=== PATIENT | female | born 1990 | race Caucasian/White ===

== ENCOUNTER 2017-11-13 10:20 | Emergency (ER) | payer OTHER ==
[2017-11-13 12:33] LABS: ADD MAN DIFF? NO
[2017-11-13 12:37] LABS: BASOPHIL # 0.1 10^3/ul (0.0-0.1); BASOPHILS % 0.5 % (0.0-2.0); EOSINOPHILS # 0.1 10^3/ul (0.0-0.5); EOSINOPHILS % 0.9 % (0.0-7.0); HEMATOCRIT 39.5 % (37.0-47.0); HEMOGLOBIN 13.4 g/dl (12.0-16.0); LYMPHOCYTES # 3.4 10^3/ul (0.8-2.9); LYMPHOCYTES % 23.4 % (15.0-51.0); MEAN CORPUSCULAR HEMOGLOBIN 27.7 pg (29.0-33.0); MEAN CORPUSCULAR HGB CONC 33.9 g/dl (32.0-37.0); MEAN CORPUSCULAR VOLUME 81.6 fl (82.0-101.0); MEAN PLATELET VOLUME 9.2 fl (7.4-10.4); MONOCYTE # 0.8 10^3/ul (0.3-0.9); MONOCYTES % 5.5 % (0.0-11.0); NEUTROPHIL # 10.1 10^3/ul (1.6-7.5); NEUTROPHILS % 69.2 % (39.0-77.0); PLATELET COUNT 314 10^3/UL (140-415); RED BLOOD COUNT 4.84 10^6/ul (4.20-5.40); RED CELL DISTRIBUTION WIDTH 13.7 % (11.5-14.5)
[2017-11-13 12:37] LABS: WHITE BLOOD COUNT 14.6 10^3/ul (4.8-10.8)
[2017-11-13 12:46] LABS: ADD UMIC YES; UR ASCORBIC ACID 40 mg/dL (NEGATIVE); UR BACTERIA FEW /HPF (NONE SEEN); UR BILIRUBIN (Dip) NEGATIVE (NEGATIVE); UR BLOOD (Dip) NEGATIVE (NEGATIVE); UR CLARITY SLIGHTLY CLOUDY (CLEAR); UR COLOR YELLOW (YELLOW); UR GLUCOSE (Dip) NEGATIVE (NEGATIVE); UR KETONES (Dip) NEGATIVE (NEGATIVE); UR LEUKOCYTE ESTERASE (Dip) TRACE Leu/ul (NEGATIVE); UR MUCUS FEW /HPF (NONE SEEN); UR NITRITE (Dip) NEGATIVE (NEGATIVE); UR RBC 5 /HPF (0-5); UR SPECIFIC GRAVITY (Dip) 1.019 (1.003-1.030); UR SQUAMOUS EPITHELIAL CELL FEW /HPF (FEW); UR TOTAL PROTEIN (Dip) NEGATIVE (NEGATIVE); UR UROBILINOGEN (Dip) NEGATIVE (NEGATIVE); UR WBC 4 /HPF (0-5)
== END 2017-11-13 14:23 | disposition home or self-care (01) ==
LOC: FTE 10:20
DX: O20.9 Hemorrhage in early pregnancy, unspecified (principal); R10.2 Pelvic and perineal pain; Z3A.08 8 weeks gestation of pregnancy
CPT/HCPCS: 36415; 76801; 81001; 84702; 85025; 86900; 86901; 99284-25

== ENCOUNTER 2018-02-21 12:43 | Outpatient (CLI) | payer OTHER ==
[2018-02-21 13:41] LABS: ADD UMIC YES; UR ASCORBIC ACID NEGATIVE (NEGATIVE); UR BACTERIA FEW /HPF (NONE SEEN); UR BILIRUBIN (Dip) NEGATIVE (NEGATIVE); UR BLOOD (Dip) NEGATIVE (NEGATIVE); UR CLARITY CLEAR (CLEAR); UR COLOR YELLOW (YELLOW); UR GLUCOSE (Dip) NEGATIVE (NEGATIVE); UR KETONES (Dip) NEGATIVE (NEGATIVE); UR LEUKOCYTE ESTERASE (Dip) 1+ Leu/ul (NEGATIVE); UR MUCUS FEW /HPF (NONE SEEN); UR NITRITE (Dip) NEGATIVE (NEGATIVE); UR RBC 2 /HPF (0-5); UR SPECIFIC GRAVITY (Dip) 1.017 (1.003-1.030); UR SQUAMOUS EPITHELIAL CELL FEW /HPF (FEW); UR TOTAL PROTEIN (Dip) NEGATIVE (NEGATIVE); UR UROBILINOGEN (Dip) NEGATIVE (NEGATIVE); UR WBC 2 /HPF (0-5)
[2018-02-21 13:47] LABS: RUPTURE FETAL MEMBRANES NEGATIVE (NEGATIVE)
== END 2018-02-21 15:29 | disposition home or self-care (01) ==
LOC: OBT 12:43 → L-D 13:02 → OBT 15:29
DX: O42.912 Preterm premature rupture of membranes, unspecified as to length of time between rupture and onset of labor, second trimester (principal); Z3A.22 22 weeks gestation of pregnancy
CPT/HCPCS: 76815; 76817; 81001; 84112

== ENCOUNTER 2018-04-13 15:10 | Outpatient (CLI) | payer OTHER ==
[2018-04-13 16:50] LABS: WHITE BLOOD COUNT 13.1 10^3/ul (4.8-10.8)
[2018-04-13 16:50] LABS: ADD MAN DIFF? NO; BASOPHIL # 0.1 10^3/ul (0.0-0.1); BASOPHILS % 0.5 % (0.0-2.0); EOSINOPHILS # 0.1 10^3/ul (0.0-0.5); EOSINOPHILS % 0.8 % (0.0-7.0); HEMATOCRIT 32.7 % (37.0-47.0); LYMPHOCYTES # 2.3 10^3/ul (0.8-2.9); LYMPHOCYTES % 17.7 % (15.0-51.0); MEAN CORPUSCULAR HEMOGLOBIN 27.4 pg (29.0-33.0); MEAN CORPUSCULAR HGB CONC 33.6 g/dl (32.0-37.0); MEAN CORPUSCULAR VOLUME 81.5 fl (82.0-101.0); MEAN PLATELET VOLUME 9.4 fl (7.4-10.4); MONOCYTE # 1.1 10^3/ul (0.3-0.9); MONOCYTES % 8.2 % (0.0-11.0); NEUTROPHIL # 9.4 10^3/ul (1.6-7.5); PLATELET COUNT 298 10^3/UL (140-415); RED BLOOD COUNT 4.01 10^6/ul (4.20-5.40); RED CELL DISTRIBUTION WIDTH 12.6 % (11.5-14.5)
[2018-04-13 16:57] LABS: ADD UMIC YES; UR ASCORBIC ACID NEGATIVE (NEGATIVE); UR BACTERIA FEW /HPF (NONE SEEN); UR BILIRUBIN (Dip) NEGATIVE (NEGATIVE); UR BLOOD (Dip) 1+ mg/dL (NEGATIVE); UR CALCIUM OXALATE CRYSTAL FEW /HPF (NONE SEEN); UR CLARITY SLIGHTLY CLOUDY (CLEAR); UR COLOR YELLOW (YELLOW); UR GLUCOSE (Dip) NEGATIVE (NEGATIVE); UR KETONES (Dip) NEGATIVE (NEGATIVE); UR LEUKOCYTE ESTERASE (Dip) 2+ Leu/ul (NEGATIVE); UR MUCUS FEW /HPF (NONE SEEN); UR NITRITE (Dip) NEGATIVE (NEGATIVE); UR RBC 4 /HPF (0-5); UR SPECIFIC GRAVITY (Dip) 1.019 (1.003-1.030); UR SQUAMOUS EPITHELIAL CELL FEW /HPF (FEW); UR TOTAL PROTEIN (Dip) NEGATIVE (NEGATIVE); UR UROBILINOGEN (Dip) 1+ mg/dL (NEGATIVE); UR WBC 2 /HPF (0-5)
[2018-04-13] MEDS: LACTATED RINGER'S 1,000 ML IV (19:31)
[2018-04-13] MEDS: CEFAZOLIN 2 GM/50 ML (PMX) 50 ML IVPB (19:32)
== END 2018-04-13 20:50 | disposition home or self-care (01) ==
LOC: OBT 15:10 → L-D 15:13 → OBT 20:50
DX: O62.9 Abnormality of forces of labor, unspecified (principal); Z3A.30 30 weeks gestation of pregnancy
CPT/HCPCS: 36415; 76817; 76818; 81001; 82731; 85025; 87086; 96360; 96365

== ENCOUNTER 2018-06-16 16:56 | Inpatient (IN) | payer OTHER ==
[2018-06-16 17:55] LABS: ADD MAN DIFF? NO
[2018-06-16 17:57] LABS: BASOPHILS % 0.2 % (0.0-2.0); EOSINOPHILS # 0.1 10^3/ul (0.0-0.5); EOSINOPHILS % 0.5 % (0.0-7.0); HEMATOCRIT 33.5 % (37.0-47.0); HEMOGLOBIN 10.7 g/dl (12.0-16.0); LYMPHOCYTES # 2.2 10^3/ul (0.8-2.9); MEAN CORPUSCULAR HEMOGLOBIN 23.9 pg (29.0-33.0); MEAN CORPUSCULAR HGB CONC 31.9 g/dl (32.0-37.0); MEAN CORPUSCULAR VOLUME 74.9 fl (82.0-101.0); MEAN PLATELET VOLUME 10.2 fl (7.4-10.4); MONOCYTES % 7.8 % (0.0-11.0); NEUTROPHIL # 9.7 10^3/ul (1.6-7.5); PLATELET COUNT 327 10^3/UL (140-415); RED BLOOD COUNT 4.47 10^6/ul (4.20-5.40); RED CELL DISTRIBUTION WIDTH 13.9 % (11.5-14.5)
[2018-06-16 17:57] LABS: WHITE BLOOD COUNT 13.1 10^3/ul (4.8-10.8)
[2018-06-16] MEDS ORDERED: METHYLERGONOVINE 0.2 MG INJ IM (18:00)
[2018-06-16] MEDS ORDERED: BUTORPHANOL 2 MG INJ IV (18:00)
[2018-06-16] MEDS ORDERED: LIDOCAINE 1% (MPF) 30 ML INJ INJ (18:00)
[2018-06-16] MEDS ORDERED: OXYTOCIN 30 UNITS/LR 500 ML IV (18:00)
[2018-06-16 18:06] LABS: INR 0.85; PROTIME 11.7 Sec (11.9-14.9); PT RATIO 0.9
[2018-06-16 18:07] LABS: PARTIAL THROMBOPLASTIN TIME 27.4 Sec (23.0-35.0)
[2018-06-16] MEDS: AMPICILLIN 2 GM/NS (PMX) 100 ML IV (18:26)
[2018-06-16] MEDS: LACTATED RINGER'S 1,000 ML IV* ×2 (18:26→22:46)
[2018-06-16 18:33] LABS: HEPATITIS B SURFACE ANTIGEN NEGATIVE (NEGATIVE)
[2018-06-16] MEDS: MISOPROSTOL 50 MCG CAPSULE PO (20:29)
[2018-06-16] MEDS: AMPICILLIN 1 GM/NS (PMX) 50 ML IV (22:07)
[2018-06-16] MEDS ORDERED: NALOXONE (0.4 MG/ML) INJ IV (23:30)
[2018-06-16 23:50] LABS: ALANINE AMINOTRANSFERASE 22 IU/L (13-69); ALBUMIN 2.8 g/dl (3.3-4.9); ALBUMIN/GLOBULIN RATIO 0.82; ALKALINE PHOSPHATASE 178 IU/L (42-121); ANION GAP 10 (8-16); ASPARTATE AMINO TRANSFERASE 20 IU/L (15-46); BILIRUBIN,INDIRECT 0.4 mg/dl (0-1.1); BILIRUBIN,TOTAL 0.4 mg/dl (0.2-1.3); BLOOD UREA NITROGEN 13 mg/dl (7-20); CALCIUM 9.5 mg/dl (8.4-10.2); CARBON DIOXIDE 23 mmol/L (21-31); CHLORIDE 107 mmol/L (97-110); GLUCOSE 83 mg/dl (70-220); POTASSIUM 4.3 mmol/L (3.5-5.1); SODIUM 136 mmol/L (135-144); TOTAL PROTEIN 6.2 g/dl (6.1-8.1); URIC ACID 6.7 mg/dl (3.1-7.9)
[2018-06-17] MEDS: LACTATED RINGER'S 1,000 ML IV* ×5 (00:30→20:21)
[2018-06-17] MEDS: MISOPROSTOL 50 MCG CAPSULE PO (01:00)
[2018-06-17 01:18] LABS: ADD UMIC YES; UR ASCORBIC ACID NEGATIVE (NEGATIVE); UR BILIRUBIN (Dip) NEGATIVE (NEGATIVE); UR BLOOD (Dip) 1+ mg/dL (NEGATIVE); UR CLARITY CLEAR (CLEAR); UR COLOR STRAW (YELLOW); UR GLUCOSE (Dip) NEGATIVE (NEGATIVE); UR KETONES (Dip) NEGATIVE (NEGATIVE); UR LEUKOCYTE ESTERASE (Dip) NEGATIVE Leu/ul (NEGATIVE); UR MUCUS FEW /HPF (NONE SEEN); UR NITRITE (Dip) NEGATIVE (NEGATIVE); UR RBC 2 /HPF (0-5); UR SPECIFIC GRAVITY (Dip) 1.014 (1.003-1.030); UR TOTAL PROTEIN (Dip) NEGATIVE (NEGATIVE); UR UROBILINOGEN (Dip) NEGATIVE (NEGATIVE); UR WBC 1 /HPF (0-5)
[2018-06-17] MEDS: AMPICILLIN 1 GM/NS (PMX) 50 ML IV ×6 (02:17→22:10)
[2018-06-17] MEDS: OXYTOCIN 30 UNITS/LR 500 ML IV ×2 (02:22→20:36)
[2018-06-17] MEDS: ACETAMINOPHEN 325 MG TAB PO ×3 (02:22→20:32)
[2018-06-17] MEDS: FENTAnyl 2MCG/ML-ROPIV 0.2% 100 ML BAG EPI ×3 (03:29→15:05)
[2018-06-17] MEDS ORDERED: CEFAZOLIN 1 GM INJ (07:00)
[2018-06-17 16:45] LABS: RAPID PLASMA REAGIN NONREACTIVE (NR)
[2018-06-17] MEDS ORDERED: FENTAnyl 50 MCG/ML VIAL ×2 (22:39→23:38)
[2018-06-17] MEDS ORDERED: ONDANSETRON 4 MG INJ (22:39)
[2018-06-17] MEDS ORDERED: CITRIC ACID/NA CITRATE 30 ML CUP (22:39)
[2018-06-17] MEDS ORDERED: OXYTOCIN 10 UNIT INJ (22:40)
[2018-06-17] MEDS ORDERED: morphine SULFATE/PF (10 MG/10 ML) INJ (22:40)
[2018-06-17] MEDS ORDERED: METOCLOPRAMIDE 10 MG INJ (22:40)
[2018-06-17] MEDS ORDERED: LIDOCAINE 2% (SDV) 5 ML INJ (22:40)
[2018-06-17] MEDS ORDERED: NA BICARBONATE 8.4% 50 ML SYG (22:40)
[2018-06-17] MEDS ORDERED: PHENYLephrine (100 MCG/ML) 5ML SYG (22:40)
[2018-06-17] MEDS ORDERED: KETOROLAC 30 MG INJ (23:38)
[2018-06-18] MEDS: MISOPROSTOL 200 MCG TAB PR (00:36)
[2018-06-18] MEDS: CITRIC ACID/NA CITRATE 30 ML CUP PO (00:40)
[2018-06-18] MEDS: ONDANSETRON 4 MG INJ IV (00:41)
[2018-06-18] MEDS: CEFAZOLIN 2 GM/50 ML (PMX) 50 ML IV (00:42)
[2018-06-18] MEDS: CARBOPROST 250 MCG INJ IM (00:42)
[2018-06-18] MEDS: OXYTOCIN 30 UNITS/LR 500 ML IV ×3 (00:55→05:23)
[2018-06-18] MEDS ORDERED: TRIMETHOBENZAMIDE 100 MG/ML VIAL IM ×2 (01:00)
[2018-06-18] MEDS ORDERED: OXYCODONE/ACETAMINOPHEN (5/325) TAB PO ×4 (01:00)
[2018-06-18] MEDS ORDERED: ONDANSETRON 4 MG INJ IV ×2 (01:00)
[2018-06-18] MEDS ORDERED: OXYTOCIN 30 UNITS/LR 500 ML IV (01:00)
[2018-06-18] MEDS ORDERED: MEPERIDINE 25 MG INJ IV (01:00)
[2018-06-18] MEDS ORDERED: LABETALOL HCL 20MG INJ IV (01:00)
[2018-06-18] MEDS ORDERED: CARBOPROST 250 MCG INJ IM (01:00)
[2018-06-18] MEDS ORDERED: hydrALAzine 20 MG INJ IV (01:00)
[2018-06-18] MEDS ORDERED: IPRATROPIUM (NEB) 0.5 MG/2.5 ML AMP HHN (01:00)
[2018-06-18] MEDS ORDERED: MISOPROSTOL 200 MCG TAB PR (01:00)
[2018-06-18] MEDS ORDERED: METHYLERGONOVINE 0.2 MG TAB PO (01:00)
[2018-06-18] MEDS ORDERED: NALOXONE (0.4 MG/ML) INJ IV (01:00)
[2018-06-18] MEDS ORDERED: HYDROmorphONE 1 MG/5 ML IV SYRINGE IV ×3 (01:00)
[2018-06-18] MEDS ORDERED: NALBUPHINE HCL (10 MG/1 ML) INJ IV (01:00)
[2018-06-18] MEDS ORDERED: FENTAnyl 50 MCG/ML VIAL IV ×3 (01:00)
[2018-06-18] MEDS ORDERED: MIDAZOLAM 1 MG/ML 2 ML INJ IV (01:00)
[2018-06-18] MEDS ORDERED: DIPHENHYDRAMINE 50 MG INJ IV ×2 (01:00)
[2018-06-18] MEDS ORDERED: METHYLERGONOVINE 0.2 MG INJ IM (01:00)
[2018-06-18] MEDS ORDERED: LANOLIN 7 GM TUBE TOP (01:00)
[2018-06-18] MEDS ORDERED: ALBUTEROL 0.083% (NEB) 2.5 MG/3 ML AMP HHN (01:00)
[2018-06-18] MEDS ORDERED: morphine 2 MG INJ IV ×2 (01:00)
[2018-06-18] MEDS ORDERED: EPHEDrine SULFATE 50 MG/5 ML SYG IV (01:00)
[2018-06-18] MEDS: PIPER-TAZO 3.375 GM IV (PMX) 100 ML IVPB ×5 (03:13→19:58)
[2018-06-18] MEDS ORDERED: PIPER-TAZO 3.375 GM IV (PMX) 100 ML IVPB (03:23)
[2018-06-18] MEDS: KETOROLAC 30 MG INJ IV ×4 (05:32→23:09)
[2018-06-18] MEDS: DEXTROSE 5%-LR 1,000 ML IV ×3 (10:20→16:04)
[2018-06-18] MEDS: IBUPROFEN 800 MG TAB PO ×3 (10:22→22:00)
[2018-06-18] MEDS: SENNA/DOCUSATE NA (8.6MG/50MG) TAB PO ×2 (11:30→21:29)
[2018-06-19] MEDS ORDERED: HYDROCODONE/APAP (5/325) TAB PO (00:10)
[2018-06-19] MEDS: HYDROCODONE/APAP (5/325) TAB PO ×4 (00:10→22:01)
[2018-06-19] MEDS: DEXTROSE 5%-LR 1,000 ML IV ×3 (00:37→16:37)
[2018-06-19] MEDS: PIPER-TAZO 3.375 GM IV (PMX) 100 ML IVPB ×3 (04:22→22:02)
[2018-06-19] MEDS: IBUPROFEN 800 MG TAB PO ×3 (06:07→22:01)
[2018-06-19 07:48] LABS: ADD MAN DIFF? NO
[2018-06-19 07:50] LABS: BASOPHILS % 0.3 % (0.0-2.0); EOSINOPHILS # 0.1 10^3/ul (0.0-0.5); EOSINOPHILS % 0.8 % (0.0-7.0); HEMATOCRIT 23.3 % (37.0-47.0); HEMOGLOBIN 7.3 g/dl (12.0-16.0); LYMPHOCYTES # 2.3 10^3/ul (0.8-2.9); LYMPHOCYTES % 16.1 % (15.0-51.0); MEAN CORPUSCULAR HEMOGLOBIN 23.8 pg (29.0-33.0); MEAN CORPUSCULAR HGB CONC 31.3 g/dl (32.0-37.0); MEAN CORPUSCULAR VOLUME 75.9 fl (82.0-101.0); MEAN PLATELET VOLUME 9.7 fl (7.4-10.4); MONOCYTE # 0.7 10^3/ul (0.3-0.9); MONOCYTES % 4.9 % (0.0-11.0); NEUTROPHIL # 11.2 10^3/ul (1.6-7.5); NEUTROPHILS % 77.2 % (39.0-77.0); PLATELET COUNT 247 10^3/UL (140-415); RED BLOOD COUNT 3.07 10^6/ul (4.20-5.40); RED CELL DISTRIBUTION WIDTH 14.7 % (11.5-14.5)
[2018-06-19 07:50] LABS: WHITE BLOOD COUNT 14.5 10^3/ul (4.8-10.8)
[2018-06-19] MEDS: SENNA/DOCUSATE NA (8.6MG/50MG) TAB PO ×2 (09:09→21:09)
[2018-06-20] MEDS: DEXTROSE 5%-LR 1,000 ML IV ×2 (00:37→08:37)
[2018-06-20] MEDS: PIPER-TAZO 3.375 GM IV (PMX) 100 ML IVPB ×2 (06:00→11:34)
[2018-06-20] MEDS: HYDROCODONE/APAP (5/325) TAB PO ×2 (06:13→13:57)
[2018-06-20] MEDS: IBUPROFEN 800 MG TAB PO ×2 (06:13→13:57)
[2018-06-20] MEDS: SENNA/DOCUSATE NA (8.6MG/50MG) TAB PO (09:19)
[2018-06-21] MEDS ORDERED: DIPHTH/TET/ACEL PERTUSS (ADULT) 0.5 ML VIAL IM* (09:00)
[2018-06-21] MEDS ORDERED: MEASLES,MUMPS,RUBELLA VACCINE INJ SC* (09:00)
== END 2018-06-20 15:30 | disposition home or self-care (01) | DRG 788 ==
LOC: OBT 16:56 → L-D 06-18 00:50 → PP1 06-18 04:10 → OBT 17:11 → L-D 17:12
PROVIDERS: Obstetrics & Gynecology
PROC: 10D00Z1 Extraction of Products of Conception, Low, Open Approach (ICD-10-PCS; principal; 2018-06-17 23:00)
PROC: 3E033VJ Introduction of Other Hormone into Peripheral Vein, Percutaneous Approach (ICD-10-PCS; 2018-06-17 23:00)
DX: O76 Abnormality in fetal heart rate and rhythm complicating labor and delivery (principal); O62.1 Secondary uterine inertia; Z3A.39 39 weeks gestation of pregnancy; Z37.0 Single live birth
CPT/HCPCS: 62319; 76815; 80053; 81001; 84560; 85025; 85384; 85610; 85730; 86592; 86850; 86900; 86901; 87340; 88307; 99464